=== PATIENT | female | born 1995 | race Caucasian/White ===

== ENCOUNTER 2017-06-11 06:22 | Emergency (ER) | payer BC ==
[~2017-06-11] VITALS: Ht 157.5 cm; Wt 63.7 kg
[2017-06-11 06:26] VITALS: Ht 157.5 cm; Wt 63.7 kg
[2017-06-11] MEDS ORDERED: IBUP-1050 PO (06:36)
[2017-06-11] MEDS ORDERED: SPR28 PO (06:36)
[2017-06-11] MEDS ORDERED: MULT-506 PO (06:36)
[2017-06-11] MEDS ORDERED: PROCHLORPERAZINE 5 MG/ML 2 ML VIAL IV STA (06:57)
[2017-06-11] MEDS ORDERED: MAGNESIUM SULFATE 1GM / D5W 1 GM BAG IV STA (06:57)
[2017-06-11] MEDS ORDERED: DiphenhydrAMINE HCL 50 MG/ML VIAL IV STA (06:57)
[2017-06-11] MEDS ORDERED: KETOROLAC TROMETHAMINE 30 MG/ML VIAL IV STA (06:57)
[2017-06-11] MEDS ORDERED: SODIUM CHLORIDE 0.9% 1000ML 1,000 ML IV STA (06:57)
--- NOTE | 2017-06-11 07:15 | EMERGENCY ROOM VISIT NOTE ---
History Report prepared by Vito: Beryl Vasquez Under the Supervision of: Dr. Jack Morales M.D. First contact with patient: 06:41 Chief Complaint: HEADACHE Stated Complaint: MIGRAINE,TINGLING IN MOUTH AND TONGUE History of Present Illness The patient is a 21 year old female who presents to the Emergency Room with complaints of a constant headache since yesterday evening. The patient has a history of migraine headaches. Last night around 6pm she developed a headache that she states is worse than any migraine she has ever had in the past. She also was experiencing some visual symptoms, which she has never had before. She was seeing washopa lines. The patient states that her symptoms started to improve around 11pm last night. She woke up this morning around 5:30am with severe pain in the right side of her head. Her lips started to feel tingly and her left arm was tingly. She called her mother, who is a nurse, and was advised to come to the ED for further evaluation. The patient states that the tingling has resolved at this time. She is still having a right-sided headache. She rates her current pain as a 4/10 in severity. She denies any neck pain. She does take an OCP. Her LNMP was 2 weeks ago. She denies chance of . She also denies neck pain. The patient has never seen a neurologist before. She has never had any imaging of her head. Source of History: patient Onset: yesterday evening Position: head Symptom Intensity: 4/10 Timing: constant Associated Symptoms: No neck pain Note: Pt reports visual symptoms and tingling in lips and left arm. Review of Systems See HPI for pertinent positives & negatives. A total of 10 systems reviewed and were otherwise negative. Past Medical & Surgical Medical Problems: (1) Asthma (2) Hx of migraines Family History Cancer Diabetes mellitus Hypertension Social History Smoking Status: Never Smoker Smokeless Tobacco Use: No Marital Status: single Housing Status: lives with roommate Occupation Status: [employer] student Current/Historical Medications Scheduled Ethinyl Estrad/Norgestimate (Sprintec 28), 1 TAB PO DAILY Multivitamin (Multivitamin), 1 TAB PO DAILY Scheduled PRN Ibuprofen (Advil), 200-600 MG PO Q4H PRN for Pain Allergies Coded Allergies: No Known Allergies (Unverified , 06/11/17) Physical Exam Vital Signs Date Time Temp Pulse Resp B/P (MAP) Pulse Ox O2 Delivery O2 Flow Rate FiO2 06/11/17 08:38 37.1 06/11/17 08:37 86 18 122/72 100 Room Air 06/11/17 07:56 129 06/11/17 06:26 36.9 112 20 139/82 97 Room Air Physical Exam GENERAL: Patient is a healthy-appearing well-nourished 21 year old female. HEAD: Normocephalic atraumatic EYES: Ocular movements intact pupils equal and react to light OROPHARYNX mucous membranes are moist no exudates present no erythema or edema present NECK: Supple no nuchal rigidity, no evidence of meningitis or encephalitis CHEST: Good equal expansion LUNGS: Clear and equal to auscultation CARDIAC: Normal S1 and S2 ABDOMEN: Soft nontender no guarding BACK: No CVA tenderness EXTREMITIES: No pain upon palpation normal muscle strength in all groups no clubbing cyanosis or edema NEURO: Patient is following commands and answering questions appropriately. Alert and oriented x3 Cranial Nerves 2-12 grossly intact Medical Decision & Procedures ER Provider Diagnostic Interpretation: Radiology results as stated below per my review and radiologist interpretation: CT HEAD WITHOUT CONTRAST (CT) CLINICAL HISTORY: Headache and left-sided numbness. COMPARISON STUDY: No previous studies for comparison. TECHNIQUE: Axial CT of the brain is performed from the vertex to the skull base. IV contrast was not administered for this examination. A dose lowering technique was utilized adhering to the principles of ALARA. CT DOSE: 537.48 mGy.cm FINDINGS: No intra or extra-axial mass lesions are visualized. There is no CT evidence of acute cortical infarction. There is no evidence of midline shift. There is no acute hemorrhage. No calvarial fractures are visualized. There is no evidence of pathologic ventricular dilatation. There is no evidence of acute sinusitis IMPRESSION: Normal noncontrast head CT. Electronically signed by: Liam Hamilton M.D. 06/11/2017 7:32 AM Dictated Date/Time: 06/11/2017 7:30 AM Laboratory Results 06/11/17 07:15 Red Blood Count 4.48, Mean Corpuscular Volume 88.8, Mean Corpuscular Hemoglobin 31.3, Mean Corpuscular Hemoglobin Concent 35.2, Mean Platelet Volume 10.3, Neutrophils (%) (Auto) 57.2, Lymphocytes (%) (Auto) 29.5, Monocytes (%) (Auto) 10.9, Eosinophils (%) (Auto) 1.9, Basophils (%) (Auto) 0.3, Neutrophils # (Auto ) 3.53, Lymphocytes # (Auto) 1.82, Monocytes # (Auto) 0.67, Eosinophils # (Auto ) 0.12, Basophils # (Auto) 0.02 06/11/17 07:15 Test 06/11/17 07:15 06/11/17 07:20 White Blood Count 6.17 K/uL (4.8-10.8) Red Blood Count 4.48 M/uL (4.2-5.4) Hemoglobin 14.0 g/dL (12.0-16.0) Hematocrit 39.8 % (37-47) Mean Corpuscular Volume 88.8 fL (80-100) Mean Corpuscular Hemoglobin 31.3 pg (25-34) Mean Corpuscular Hemoglobin Concent 35.2 g/dl (32-36) Platelet Count 227 K/uL (130-400) Mean Platelet Volume 10.3 fL (7.4-10.4) Neutrophils (%) (Auto) 57.2 % Lymphocytes (%) (Auto) 29.5 % Monocytes (%) (Auto) 10.9 % Eosinophils (%) (Auto) 1.9 % Basophils (%) (Auto) 0.3 % Neutrophils # (Auto) 3.53 K/uL (1.4-6.5) Lymphocytes # (Auto) 1.82 K/uL (1.2-3.4) Monocytes # (Auto) 0.67 K/uL (0.11-0.59) Eosinophils # (Auto) 0.12 K/uL (0-0.5) Basophils # (Auto) 0.02 K/uL (0-0.2) RDW Standard Deviation 39.0 fL (36.4-46.3) RDW Coefficient of Variation 12.2 % (11.5-14.5) Immature Granulocyte % (Auto) 0.2 % Immature Granulocyte # (Auto) 0.01 K/uL (0.00-0.02) Anion Gap 7.0 mmol/L (3-11) Est Creatinine Clear Calc Drug Dose 93.7 ml/min Estimated GFR () 116.0 Estimated GFR (Non- 100.1 BUN/Creatinine Ratio 9.4 (10-20) Calcium Level 9.6 mg/dl (8.5-10.1) Total Bilirubin 0.4 mg/dl (0.2-1) Direct Bilirubin < 0.1 mg/dl (0-0.2) Aspartate Amino Transf (AST/SGOT) 19 U/L (15-37) Alanine Aminotransferase (ALT/SGPT) 17 U/L (12-78) Alkaline Phosphatase 57 U/L (45-117) Total Protein 7.4 gm/dl (6.4-8.2) Albumin 3.7 gm/dl (3.4-5.0) Lipase 126 U/L (73-393) Urine Color DK YELLOW Urine Appearance CLEAR (CLEAR) Urine pH 5.5 (4.5-7.5) Urine Specific [place] 1.027 (1.000-1.030) Urine Protein 1+ (NEG) Urine Glucose (UA) NEG (NEG) Urine Ketones TRACE (NEG) Urine Occult Blood NEG (NEG) Urine Nitrite NEG (NEG) Urine Bilirubin NEG (NEG) Urine Urobilinogen NEG (NEG) Urine Leukocyte Esterase NEG (NEG) Urine WBC (Auto) 1-5 /hpf (0-5) Urine RBC (Auto) 0-4 /hpf (0-4) Urine Hyaline Casts (Auto) 1-5 /lpf (0-5) Urine Epithelial Cells (Auto) >30 /lpf (0-5) Urine Bacteria (Auto) NEG (NEG) Urine Test NEG (NEG) Labs reviewed by ED physician. Medications Administered Medications (Trade) Dose Ordered Sig/Dorie Route Start Time Stop Time Status Last Admin Dose Admin Sodium Chloride 1,000 ml @ 999 mls/hr Q1H1M STAT IV 06/11/17 06:57 06/11/17 07:57 DC 06/11/17 07:40 999 MLS/HR Ketorolac Tromethamine (Toradol Inj) 30 mg NOW STAT IV 06/11/17 06:57 06/11/17 06:59 DC 06/11/17 07:39 30 MG Prochlorperazine Edisylate (Compazine Inj) 5 mg NOW STAT IV 06/11/17 06:57 06/11/17 06:59 DC 06/11/17 07:38 5 MG Diphenhydramine HCl (Benadryl Inj) 50 mg NOW STAT IV 06/11/17 06:57 06/11/17 06:59 DC 06/11/17 07:38 50 MG Magnesium Sulfate (Magnesium Sulfate) 1 gm NOW STAT IV 06/11/17 06:57 06/11/17 06:59 DC 06/11/17 07:38 1 GM Dexamethasone Sodium Phosphate (Decadron Inj) 10 mg NOW ONCE IV 06/11/17 08:45 06/11/17 08:46 DC 06/11/17 08:38 10 MG ED Course 0641: Past medical records reviewed. The patient was evaluated in room B10. A complete history and physical examination was performed. 0657: Magnesium Sulfate 1 gm IV, Benadryl 50 mg IV, Compazine 5 mg IV, Toradol 30 mg IV, NSS 1000 ml @ 999 mls/hr IV 0739: I reassessed the patient. She has not yet received her medications. 0829: I reassessed the patient at this time. She is feeling better and resting comfortably. I discussed the results and treatment plan with the patient. I answered all pertaining questions that she had. She expressed understanding and verbalized agreement. The patient will be discharged home. 0845: Decadron 10 mg IV Medical Decision Differential diagnosis: Etiologies such as migraine headache, meningitis, sinusitis, CO exposure, ICH, SAH, infection, tumor, headache, sinus thrombosis, arterial dissection, as well as others were entertained. This is a 21-year-old female who presents emergency department complaining of numbness and tingling. The patient had a migraine with aura that started last evening. Patient reports she has never had a migraine like this before. She is neurovascularly intact and I suspect that the patient is suffering indeed from a migraine. She was sent for CAT scan of the head which did not show any evidence of intracranial hemorrhage or tumor. The patient has never had any imaging of her head performed before. She was treated with migraine medications including a normal saline bolus as well as Toradol Compazine and Benadryl. Repeat examination revealed improvement the patient's symptoms. I do feel that the patient as well as to be discharged home however strongly recommended to the patient that she follow-up with neurology. Patient was in agreement with the treatment plan. Medication Reconcilliation Current Medication List: was personally reviewed by me Blood Pressure Screening Patient's blood pressure: Normal blood pressure Impression Primary Impression: Migraine Scribe Attestation The scribe's documentation has been prepared under my direction and personally reviewed by me in its entirety. I confirm that the note above accurately reflects all work, treatment, procedures, and medical decision making performed by me. Departure Information Dispostion Home / Self-Care Referrals No Doctor, Assigned (PCP) Tamiko Whitley D.O. Forms HOME CARE DOCUMENTATION FORM, IMPORTANT VISIT INFORMATION Patient Instructions Headache Migraine Meds Lifestyle, Headache Migraine Triggers Prevent, Headaches Migraine and Tension, My [facility] Additional Instructions Follow up with Dr Whitley's office or neurologist at home You have been examined and treated today on an emergency basis only. This is not a substitute for, or an effort to provide, complete comprehensive medical care. It is impossible to recognize and treat all injuries or illnesses in a single emergency department visit. It is therefore important that you follow up closely with [facility]. Call as soon as possible for an appointment. Thank you for your time and consideration. I look forward to speaking with you again soon. Please don't hesitate to call us if you have any questions. Problem Qualifiers Primary Impression: Migraine Migraine type: with aura Status migrainosus presence: without status migrainosus Intractability: not intractable Qualified Codes: G43.109 - Migraine with aura, not intractable, without status migrainosus
--- NOTE | 2017-06-11 07:33 | DIAGNOSTIC IMAGING REPORT ---
CT HEAD WITHOUT CONTRAST (CT) CLINICAL HISTORY: Headache and left-sided numbness. COMPARISON STUDY: No previous studies for comparison. TECHNIQUE: Axial CT of the brain is performed from the vertex to the skull base. IV contrast was not administered for this examination. A dose lowering technique was utilized adhering to the principles of ALARA. CT DOSE: 537.48 mGy.cm FINDINGS: No intra or extra-axial mass lesions are visualized. There is no CT evidence of acute cortical infarction. There is no evidence of midline shift. There is no acute hemorrhage. No calvarial fractures are visualized. There is no evidence of pathologic ventricular dilatation. There is no evidence of acute sinusitis IMPRESSION: Normal noncontrast head CT. Electronically signed by: Liam Hamilton M.D. 06/11/2017 7:32 AM Dictated Date/Time: 06/11/2017 7:30 AM
[2017-06-11 07:36] LABS: BASO % 0.3 %; BASO ABS # 0.02 K/uL (0-0.2); COMPLETE YES; EOS % 1.9 %; HEMATOCRIT 39.8 % (37-47); IG% 0.2 %; LYMPH % 29.5 %; LYMPH ABS # 1.82 K/uL (1.2-3.4); MEAN CELL VOLUME 88.8 fL (80-100); MEAN CORPUSCULAR HEMOGLOBIN 31.3 pg (25-34); MEAN CORPUSCULAR HGB CONC 35.2 g/dl (32-36); MEAN PLATELET VOLUME 10.3 fL (7.4-10.4); MONO % 10.9 %; NEUT % 57.2 %; PLATELET COUNT 227 K/uL (130-400); RED BLOOD COUNT 4.48 M/uL (4.2-5.4); WHITE BLOOD COUNT 6.17 K/uL (4.8-10.8)
[2017-06-11 07:53] LABS: ALT/SGPT 17 U/L (12-78); BLOOD UREA NITROGEN 8 mg/dl (7-18); BUN/CREATININE RATIO 9.4 (10-20); CALCIUM 9.6 mg/dl (8.5-10.1); CARBON DIOXIDE 27 mmol/L (21-32); CHLORIDE 105 mmol/L (98-107); CREATININE 0.84 mg/dl (0.60-1.20); GLUCOSE 105 mg/dl (70-99); POTASSIUM 3.6 mmol/L (3.5-5.1); SODIUM 139 mmol/L (136-145)
[2017-06-11 07:56] LABS: ALKALINE PHOSPHATASE 57 U/L (45-117); AST/SGOT 19 U/L (15-37)
[2017-06-11 08:01] LABS: MANUAL MICROSCOPIC REQUIRED? NO; REVIEW REQ? NO; URINE APPEARANCE CLEAR (CLEAR); URINE BILIRUBIN NEG (NEG); URINE COLOR DK YELLOW; URINE EPITHELIAL CELL AUTO >30 /lpf (0-5); URINE NITRITE NEG (NEG); URINE PH 5.5 (4.5-7.5); URINE SPECIFIC GRAVITY 1.027 (1.000-1.030); UROBILINOGEN NEG (NEG)
[2017-06-11 08:37] VITALS: BP 122/72; PULSE 86; O2SAT 100
[2017-06-11 08:38] VITALS: TEMP 37.1
[2017-06-11] MEDS ORDERED: DEXAMETHASONE SOD INJ 10 MG/ML VIAL IV ONE (08:45)
== END 2017-06-11 08:47 | disposition home or self-care (01) ==
LOC: C.EDB 06:23
DX: G43.909 Migraine, unspecified, not intractable, without status migrainosus (principal); J45.909 Unspecified asthma, uncomplicated; Z79.899 Other long term (current) drug therapy; Z80.9 Family history of malignant neoplasm, unspecified; Z83.3 Family history of diabetes mellitus; Z82.49 Family history of ischemic heart disease and other diseases of the circulatory system